=== PATIENT | female | born 1980 | race African-American/Black ===

== ENCOUNTER 2025-04-22 13:48 | Emergency (ER) | payer MEDICAID ==
[~2025-04-22] VITALS: Ht 167.6 cm; Wt 100.0 kg
[2025-04-22 13:55] VITALS: TEMP 98.2; O2SAT 99
[2025-04-22 16:08] LABS: CLARITY URINE CLEAR (CLEAR); COLOR URINE YELLOW (YELLOW); GLUCOSE URINE 3+ (NEGATIVE); KETONES URINE 2+ (NEGATIVE); LEUKOCYTE ESTERASE URINE NEGATIVE (NEGATIVE); NITRITE URINE NEGATIVE (NEGATIVE); OCCULT BLOOD URINE 3+ (NEGATIVE); PH URINE 5.0 (4.5-8.0); PROTEIN URINE TRACE (NEGATIVE); SPECIFIC GRAVITY URINE 1.055 (1.005-1.030); UROBILINOGEN URINE 1.0 E.U./dL (0.2-1.0)
[2025-04-22 16:30] LABS: BACTERIA URINE 1+; SQUAMOUS EPITHELIAL CELL URINE 1+ /lpf (RARE/1+); WBC URINE 0-2 /hpf (0-2)
[2025-04-22] MEDS: KETOROLAC 30MG/ML VIAL IM ONE (16:37)
[2025-04-22] MEDS: HYDROCODONE/ACETAMINOPHEN 5/325MG TABLET PO ONE ×2 (16:38→20:08)
[2025-04-22] MEDS: LIDOCAINE 5% PATCH TOP SCH (16:43)
[2025-04-22 17:49] LABS: BASOPHILS % 0.3 % (0.0-2.0); EOSINOPHILS % 0.2 % (0.0-5.0); HEMATOCRIT. 38.6 % (36.0-48.0); HEMOGLOBIN. 12.6 g/dL (12.0-16.0); LYMPHOCYTES % 28.3 % (20.0-50.0); MEAN PLATELET VOLUME 9.4 fl (7.4-10.4); MONOCYTES % 3.1 % (2.0-8.0); NEUTROPHILS % 68.1 % (40.0-76.0); PLATELET 264 x1000/uL (130-400); RED BLOOD CELL COUNT 4.27 mill/uL (4.2-5.4); RED CELL DISTRIBUTION WIDTH 13.4 % (11.6-14.6)
[2025-04-22 18:05] LABS: CREATININE 0.8 mg/dL (0.6-1.0); UREA NITROGEN BLOOD 11 mg/dL (9-23)
[2025-04-22 18:07] LABS: ASPARTATE AMINOTRANSFERASE 16 IU/L (<34)
[2025-04-22 18:08] LABS: BILIRUBIN TOTAL 0.5 mg/dL (0.1-1.0); PROTEIN TOTAL 7.0 g/dL (6.0-8.3)
[2025-04-22 18:24] LABS: HCG SCREEN NEGATIVE
[2025-04-22] MEDS ORDERED: HYDR-4001 MT (19:34)
[2025-04-22] MEDS ORDERED: LIDO-53 TP (19:34)
[2025-04-22] MEDS ORDERED: IBUP-1455 MT (19:34)
[2025-04-22 20:19] VITALS: BP 138/88; PULSE 101; RESP 15; O2SAT 99
== END 2025-04-22 20:21 | disposition home or self-care (01) ==
LOC: ER 13:48 → CMPBEDREQ 04-23 08:10
DX: M54.9 Dorsalgia, unspecified (principal); M54.10 Radiculopathy, site unspecified; E11.9 Type 2 diabetes mellitus without complications; M43.16 Spondylolisthesis, lumbar region
CPT/HCPCS: 80053; 81003; 81025; 84703; 85025; 36415; 72100; 96372; 99284; J1885; Z7610